=== PATIENT | female | born 1980 | race African-American/Black ===

== ENCOUNTER 2019-09-29 10:18 | Emergency (ER) | payer BC ==
[~2019-09-29] VITALS: Ht 165.1 cm
[~2019-09-29 10:18] MED LIST: BIAXIN500 MG PO; CIPRO250 MG PO; CLARITIN10 MG PO; ZITHROMAX Z PA250 MG PO; ZOFRAN ODT4 MG SL
[2019-09-29 10:23] VITALS: BP 141/68
[2019-09-29] MEDS ORDERED: MEDROL DOSEPAK4 MG PO (12:16)
[2019-09-29] MEDS ORDERED: NAPROSYN500 MG PO (12:16)
[2019-09-29] MEDS ORDERED: METHOCARBAMOL500 M1 PO (12:16)
== END 2019-09-29 12:49 | disposition home or self-care (01) ==
LOC: ED 10:18
DX: S46.912A Strain of unspecified muscle, fascia and tendon at shoulder and upper arm level, left arm, initial encounter (principal); J45.909 Unspecified asthma, uncomplicated; Z88.0 Allergy status to penicillin; Z88.2 Allergy status to sulfonamides; Z79.899 Other long term (current) drug therapy; X58.XXXA Exposure to other specified factors, initial encounter; Y93.89 Activity, other specified; Y92.89 Other specified places as the place of occurrence of the external cause; Y99.8 Other external cause status

== ENCOUNTER → 2025-01-22 | Outpatient (CLI) | payer BC ==
[~2025-01-22] MED LIST changes: +MEDROL DOSEPAK4 MG PO; +METHOCARBAMOL500 M1 PO; +NAPROSYN500 MG PO
[2025-01-22 18:44] LABS: BUN 17 mg/dl (9-23); SGPT/ALT 91 U/L (5-49)
== END | disposition home or self-care (01) ==
LOC: LAB 15:51
PROVIDERS: ATTEND Nurse Practitioner Family
DX: R16.2 Hepatomegaly with splenomegaly, not elsewhere classified (principal); R79.89 Other specified abnormal findings of blood chemistry

== ENCOUNTER → 2025-02-02 | Outpatient (CLI) | payer BC ==
[2025-02-02 17:37] LABS: BASO # 0.1 10*3/uL (0.0-0.1); BASO % 0.9 % (0.0-1.0); EOS # 0.6 10*3/uL (0.0-0.4); EOS % 6.3 % (1.0-4.0); MEAN CELL VOLUME 72.0 fl (81.0-99.0); MEAN CORPUSCULAR HGB 23.2 pg (27.0-31.0); MEAN PLATELET VOLUME 9.2 fl (9.6-12.3); MONO # 0.9 10*3/uL (0.1-1.0); MONO % 9.0 % (3.0-9.0); NEUT # 5.7 10*3/uL (2.3-7.9); NEUT % 58.0 % (47.0-73.0); NUCLEATED RED BLOOD CELL 0.0 % (0.0-0.0); NUCLEATED RED BLOOD CELL 0.0 10*3/uL (0.0-0.0); PLATELET COUNT AUTOMATED 549 10*3/uL (130-400); RED CELL DISTRI WIDTH 24.1 % (0-14.5)
[2025-02-02 18:02] LABS: BUN 12 mg/dl (9-23); SGPT/ALT 31 U/L (5-49)
[2025-02-03 06:07] LABS: HEPATITIS A AB, TOTAL Negative (Negative)
[2025-02-03 08:08] LABS: CYTOMEGALOVIRUS AB, IGG <0.60 U/mL (0.00-0.59)
[2025-02-03 09:07] LABS: ALPHA-1-ANTITRYPSIN, SERUM 170 mg/dL (101-187)
[2025-02-03 15:07] LABS: ANTI-SMOOTH MUSCLE ANTIBODY 17 Units (0-19)
== END | disposition home or self-care (01) ==
LOC: LAB 17:09
PROVIDERS: ATTEND Internal Medicine Transplant Hepatology
DX: R74.8 Abnormal levels of other serum enzymes (principal)

== ENCOUNTER → 2025-02-09 | Outpatient (CLI) | payer BC ==
[2025-02-09 17:52] LABS: BASO # 0.1 10*3/uL (0.0-0.1); BASO % 0.9 % (0.0-1.0); EOS # 0.3 10*3/uL (0.0-0.4); EOS % 3.0 % (1.0-4.0); MEAN CELL VOLUME 73.7 fl (81.0-99.0); MEAN CORPUSCULAR HGB 23.4 pg (27.0-31.0); MEAN PLATELET VOLUME 10.0 fl (9.6-12.3); MONO # 1.0 10*3/uL (0.1-1.0); MONO % 9.1 % (3.0-9.0); NEUT # 7.0 10*3/uL (2.3-7.9); NEUT % 64.3 % (47.0-73.0); NUCLEATED RED BLOOD CELL 0.0 % (0.0-0.0); NUCLEATED RED BLOOD CELL 0.0 10*3/uL (0.0-0.0); PLATELET COUNT AUTOMATED 512 10*3/uL (130-400); RED CELL DISTRI WIDTH 22.9 % (0-14.5)
[2025-02-09 18:15] LABS: BUN 19 mg/dl (9-23); SGPT/ALT 24 U/L (5-49)
== END | disposition home or self-care (01) ==
LOC: LAB 17:29
PROVIDERS: ATTEND Internal Medicine Transplant Hepatology
DX: R74.8 Abnormal levels of other serum enzymes (principal)